=== PATIENT | female | born 1995 | race African-American/Black ===

== ENCOUNTER 2017-01-14 23:34 | Emergency (ER) | payer OTHER ==
[~2017-01-14] VITALS: Ht 170.2 cm; Wt 69.0 kg
[2017-01-15 00:07] VITALS: BP 121/71
== END 2017-01-15 05:51 | disposition left against medical advice (07) ==
LOC: ER 23:35
DX: M54.9 Dorsalgia, unspecified (principal); R30.9 Painful micturition, unspecified; Z53.21 Procedure and treatment not carried out due to patient leaving prior to being seen by health care provider

== ENCOUNTER 2017-08-24 15:54 | Emergency (ER) | payer OTHER ==
[~2017-08-24] VITALS: Ht 170.2 cm; Wt 68.0 kg
[2017-08-24 16:12] VITALS: BP 110/73
== END 2017-08-24 22:13 | disposition left against medical advice (07) ==
LOC: ER 20:09
DX: Z53.21 Procedure and treatment not carried out due to patient leaving prior to being seen by health care provider (principal)